=== PATIENT | female | born 1960 | race Caucasian/White ===

== ENCOUNTER → 2020-07-16 11:45 | Outpatient (CLI) | payer OTHER, SELFPAY ==
--- NOTE | ~2020-07-16 | MR_ITS ---
EXAMINATION: MR cervical spine wo con DATE: 07/16/2020 12:34 INDICATION: Degenerative intervertebral disc disease of the cervical region presenting with neck pain and left arm pain and numbness. TECHNIQUE: Magnetic resonance imaging (MRI) of the cervical spine was performed without intravenous c ontrast. Sequences included sagittal T2-weighted FSE, sagittal T2-weighted FS FSE, sagittal T1-weight ed FSE, axial MERGE and axial T2-weighted FSE. COMPARISON: Cervical spine radiographs dated 01/06/2017 FINDINGS: Again seen are postoperative change of prior C3-C4 and C6-C7 discectomies with solidly incorporated i nterbody bone grafting and anterior plate and screw fixation at both levels. Bone alignment is normal . Unfused vertebral body heights are normal. Normal bone marrow signal throughout. Moderate disc heig ht loss at C5-C6, T2-T3 through T4-T5. Mild disc height loss at C4-C5, C7-T1 and T1-T2. Cord signal i ntensity is normal. Cervical soft tissues are unremarkable. The following disc levels are specificall y discussed: C2-C3: The disc does not extend beyond the endplate margin. There is no uncovertebral joint osteoarth ritis. There is moderate right and mild to moderate left facet joint osteoarthritis. There is minimal left neural foraminal stenosis. There is no central canal stenosis. C3-C4: Disc space is fused. There is mild bilateral facet joint osteoarthritis. There is minimal left neural foraminal stenosis. There is no central canal stenosis. C4-C5: Disc is mildly bulging. There is mild bilateral uncovertebral joint osteoarthritis. There is m oderate right and severe left facet joint osteoarthritis. There is mild right and moderate left neura l foraminal stenosis. There is mild central canal stenosis. C5-C6: Disc is bulging, eccentric to the left. There is moderate left and mild to moderate right unco vertebral joint osteoarthritis. There is moderate left and severe right facet joint osteoarthritis. T here is moderate left and mild right neural foraminal stenosis. There is mild central canal stenosis with indentation of the left ventral surface of the cord. C6-C7: Disc space is fused. There is mild bilateral facet joint osteoarthritis. There is no neural fo raminal stenosis. There is no central canal stenosis. C7-T1: Small left paracentral disc protrusion. There is mild left uncovertebral joint osteoarthritis. There is moderate right and severe left facet joint osteoarthritis. There is mild left neural forami nal stenosis. There is mild central canal stenosis. IMPRESSION: 1. Mild to moderate cervical spondylosis with chronic discectomies and instrumented anterior spinal f usion at C3-C4 and C6-C7. Reviewed, dictated and finalized at location A. IMPRESSION: 1. Mild to moderate cervical spondylosis with chronic discectomies and instrume nted anterior spinal fusion at C3-C4 and C6-C7.
== END ==
DX: M47.813 Spondylosis without myelopathy or radiculopathy, cervicothoracic region (principal); M48.03 Spinal stenosis, cervicothoracic region
CPT/HCPCS: 72141